=== PATIENT | female | born 1960 | race African-American/Black ===

== ENCOUNTER 2017-06-06 07:45 | Emergency (ER) | payer MEDICARE ==
[~2017-06-06] VITALS: Ht 165.1 cm; Wt 90.5 kg
[2017-06-06 07:57] LABS: GLUCOSE,POINT OF CARE 148 MG/DL (70-110)
[2017-06-06] MEDS ORDERED: TRAM50TA4 PO (07:58)
[2017-06-06] MEDS ORDERED: TELM40 PO (07:59)
[2017-06-06] MEDS ORDERED: PROP20TA18 PO (07:59)
[2017-06-06] MEDS ORDERED: HYDR25TA PO (07:59)
[2017-06-06] MEDS ORDERED: INSU3INS5 SQ (07:59)
[2017-06-06] MEDS ORDERED: PREG75 PO (07:59)
[2017-06-06] MEDS ORDERED: ASPI-556 PO (07:59)
[2017-06-06] MEDS ORDERED: TraMADol HCL 50 MG TABLET PO ONE (08:30)
[2017-06-06 10:13] VITALS: BP 150/80
== END 2017-06-06 10:40 | disposition home or self-care (01) ==
LOC: EMS 07:46
DX: S83.91XA Sprain of unspecified site of right knee, initial encounter (principal); S83.92XA Sprain of unspecified site of left knee, initial encounter; S60.221A Contusion of right hand, initial encounter; E11.9 Type 2 diabetes mellitus without complications; E78.00 Pure hypercholesterolemia, unspecified; I10 Essential (primary) hypertension; Z79.4 Long term (current) use of insulin; W01.0XXA Fall on same level from slipping, tripping and stumbling without subsequent striking against object, initial encounter; Y93.89 Activity, other specified; Y92.89 Other specified places as the place of occurrence of the external cause; Y99.8 Other external cause status
CPT/HCPCS: 82962; 99284